=== PATIENT | female | born 1970 | race African-American/Black ===

== ENCOUNTER 2016-10-04 11:22 | Emergency (ER) | payer MEDICAID ==
[~2016-10-04] VITALS: Ht 162.6 cm; Wt 68.0 kg
[~2016-10-04 11:22] MED LIST: CIPRO500 MG PO; CYCLOBENZAPRINE10 MG ORAL; IBUPROFEN600 MG ORAL; MACROBID100 MG ORAL; METROGEL-VAGINA70 G1 VAGIN; NAPROSYN500 M1 ORAL; NAPROXEN375 MG PO; NKM; NORCO 5-325 TA1 EAC1 PO; NORCO 5-325 TA1 EACH ORAL; TYLENOL #21 EA ORAL; TYLENOL325 MG ORAL; VALIUM2 MG PO; VIBRAMYCIN100 MG ORAL; ZOFRAN ODT4 MG ORAL
[2016-10-04 12:04] VITALS: BP 107/54
--- NOTE | 2016-10-04 12:16 | Emergency Room Report ---
History of Present Illness General Chief Complaint: Eye Problems Source: Patient Present Illness HPI 36-year-old female presents emergency department complaining of irritation, erythema, discharge and increased lacrimation from the left thigh progressive over the course of 5 days. Patient reports onset of symptoms was after having eyelashes extensions placed. Patient is unable to remove all of the false eyelashes from the left eye. Patient reports intermittent itching she denies foreign body sensation, denies eye pain or loss of vision. Patient reports that at 10 in severity burning sensation. She denies use of contact lenses. She denies photophobia, visual disturbances or flashing lights. Denies CP, Palpitations, LOC, AMS, dizziness, Changes in Vision, Sensation, paresthesias, or a sudden severe headache. Allergies: Coded Allergies: No Known Allergies (Unverified , 03/24/13) Patient History Past Medical History: see triage record Past Surgical History: none Pertinent Family History: none Last Menstrual Period: last month Now: No Immunizations: UTD Reviewed Nursing Documentation: PMH: Agreed, PSxH: Agreed Nursing Documentation-PMH Past Medical History: No Stated History Review of Systems All Other Systems: negative except mentioned in HPI Physical Exam Vital Signs Date Time Temp Pulse Resp B/P Pulse Ox O2 Delivery O2 Flow Rate FiO2 10/04/16 11:41 98.4 86 18 107/54 99 Room Air Sp02 EP Interpretation: reviewed, normal General Appearance: no apparent distress, alert, GCS 15, non-toxic Head: normocephalic, atraumatic Eyes: left eye lid inflammation - upper lid inflammation, left eye other - erythema, and obvious d/c noted in the left eye, upper lid inflammation, pt. has EOMI without pain., bilateral eye PERRL, bilateral eye normal inspection ENT: hearing grossly normal, normal pharynx, no angioedema, normal voice Neck: full range of motion, supple/symm/no masses Respiratory: lungs clear, normal breath sounds, speaking full sentences Cardiovascular #1: regular rate, rhythm, no edema Musculoskeletal: back normal, gait/station normal, normal range of motion, non- tender Neurologic: alert, oriented x3, responsive, motor strength/tone normal, sensory intact, speech normal Psychiatric: judgement/insight normal, memory normal, mood/affect normal Skin: normal color, no rash, warm/dry, well hydrated Lymphatic: no adenopathy Medical Decision Making PA Attestation Dr. malone is my supervising Physician whom patient management has been discussed with. Diagnostic Impression: Primary Impression: Conjunctivitis Qualified Codes: H10.32 - Unspecified acute conjunctivitis, left eye ER Course 36-year-old female presents emergency department complaining of irritation, erythema, discharge and increased lacrimation from the left thigh progressive over the course of 5 days. Patient reports onset of symptoms was after having eyelashes extensions placed. Patient is unable to remove all of the false eyelashes from the left eye. Patient reports intermittent itching she denies foreign body sensation, denies eye pain or loss of vision. Patient reports that at 10 in severity burning sensation. She denies use of contact lenses. She denies photophobia, visual disturbances or flashing lights. Ddx considered but are not limited to: corneal abrasion, acute glaucoma, globe rupture, FB, Corneal Ulcer, conjunctivitis. Iridis, orbital cellulitis,keratitis , sinusitis Vital signs: are WNL, pt. is afebrile H&PE are most consistent with: bacterial conjunctivitis secondary to false eyelashes ORDERS: none at this time. ED INTERVENTIONS: none at this time. DISCHARGE: At this time pt. is stable for d/c to home. Will provide printed patient care instructions, and any necessary prescriptions. Care plan and follow up instructions have been discussed with the patient prior to discharge. Last Vital Signs Date Time Temp Pulse Resp B/P Pulse Ox O2 Delivery O2 Flow Rate FiO2 10/04/16 12:04 98.4 86 18 107/54 99 Room Air Disposition: HOME, SELF-CARE Condition: Stable Scripts Diclofenac Sodium (DICLOFENAC SODIUM*) 2.5 Ml Drops 1 DROP LEFT EYE QID, #2.5 ML 0 Refills Prov: Melany Torre P.A. 10/04/16 Ofloxacin (OCUFLOX) 5 Ml Drops 3 DROP OP BID, #5 ML Prov: Melany Torre P.A. 10/04/16 [facility]errals: [facility] (PCP) Patient Instructions: Bacterial Conjunctivitis, [id number] Additional Instructions: Take medications as directed. Follow up with PCP in 3-5 days Return sooner to ED if new symptoms occur, or current symptoms become worse. Recommend removal of existing eyelash extensions, and frequent lid washing. - Please note that this Emergency Department Report was dictated using [employer] economics teacher technology software, occasionally this can lead to erroneous entry secondary to interpretation by the dictation equipment. Melany Torre. Oct 04, 2016 12:16
[2016-10-04] MEDS ORDERED: OCUFLOX5 ML OP (12:17)
[2016-10-04] MEDS ORDERED: DICLOFENAC SOD2.5 ML LEFT EYE (12:17)
[2016-10-04 12:36] VITALS: BP 107/54
== END 2016-10-04 12:38 | disposition home or self-care (01) ==
LOC: EMR 12:03
DX: H10.32 Unspecified acute conjunctivitis, left eye (principal)
CPT/HCPCS: 99284

== ENCOUNTER 2016-11-25 13:20 | Emergency (ER) | payer MEDICAID ==
[~2016-11-25] VITALS: Ht 162.6 cm; Wt 68.0 kg
[~2016-11-25 13:20] MED LIST changes: +DICLOFENAC SOD2.5 ML LEFT EYE; +OCUFLOX5 ML OP
[2016-11-25 14:06] VITALS: BP 133/83
[2016-11-25] MEDS ORDERED: Bacitracin Oint UD TOPIC ONE (14:15)
[2016-11-25] MEDS ORDERED: Lidocaine 1% MPF 10mg/ml 5ml INJ ONE (14:15)
[2016-11-25 15:00] VITALS: BP 130/75
[2016-11-25] MEDS ORDERED: BACITRACIN15 GM TOPIC (15:03)
[2016-11-25] MEDS ORDERED: IBUPROFEN600 MG ORAL (15:03)
[2016-11-25 15:09] VITALS: BP 130/75
[2016-11-25] MEDS ORDERED: TYLENOL EXTRA500 MG ORAL (15:15)
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
== END 2016-11-25 15:09 | disposition home or self-care (01) ==
LOC: EMR 13:40
DX: S01.01XA Laceration without foreign body of scalp, initial encounter (principal); Y04.2XXA Assault by strike against or bumped into by another person, initial encounter; Y93.9 Activity, unspecified; Y92.9 Unspecified place or not applicable
CPT/HCPCS: 12001; 99284; Z7502

== ENCOUNTER 2017-01-14 19:20 | Emergency (ER) | payer MEDICAID ==
[~2017-01-14] VITALS: Ht 162.6 cm; Wt 68.0 kg
[~2017-01-14 19:20] MED LIST changes: +BACITRACIN15 GM TOPIC; +TYLENOL EXTRA500 MG ORAL
--- NOTE | 2017-01-14 19:59 | Emergency Room Report ---
History of Present Illness General Chief Complaint: Lower Extremity Injury Source: Patient Present Illness HPI Patient is a 46-year-old female who presents today with complaints of left great toe pain. She states one month ago she was swimming and stubbed her left great toe. She states that within the past few days the pain in left great toe has been worsening and the nail is beginning to lift. She states the pain is currently a 6/10 in severity and hasn't taken medications for it. Denies any numbness, tingling, loss of vision Allergies: Coded Allergies: No Known Allergies (Unverified , 03/24/13) Patient History Now: No Reviewed Nursing Documentation: PMH: Agreed, PSxH: Agreed Nursing Documentation-PMH Past Medical History: No Stated History Review of Systems Musculoskeletal: Reports: other - toe pain All Other Systems: negative except mentioned in HPI Physical Exam Vital Signs Date Time Temp Pulse Resp B/P (MAP) Pulse Ox O2 Delivery O2 Flow Rate FiO2 01/14/17 19:42 97.9 115 20 116/58 97 Room Air Sp02 EP Interpretation: reviewed, normal General Appearance: no apparent distress, alert, GCS 15, non-toxic Head: normocephalic, atraumatic Eyes: bilateral eye normal inspection, bilateral eye PERRL ENT: hearing grossly normal, normal pharynx, no angioedema, normal voice Neck: full range of motion, supple/symm/no masses Respiratory: chest non-tender, lungs clear, normal breath sounds, speaking full sentences Cardiovascular #1: regular rate, rhythm, no edema Cardiovascular #2: 2+ carotid (R), 2+ carotid (L), 2+ radial (R), 2+ radial (L) , 2+ dorsalis pedis (R), 2+ dorsalis pedis (L) Gastrointestinal: normal bowel sounds, non tender, soft, non-distended, no guarding, no rebound Rectal: deferred Genitourinary: normal inspection, no CVA tenderness Musculoskeletal: back normal, gait/station normal, normal range of motion, non- tender, calf tenderness, other - no tenderness to palpation over the left great toe. The nail is lifted off of the nail bed it. There is scant erythema at the cuticle line with a small amount of purulent discharge expressed. Neurologic: alert, oriented x3, responsive, motor strength/tone normal, sensory intact, speech normal Psychiatric: judgement/insight normal, memory normal, mood/affect normal, no suicidal/homicidal ideation Reflexes: 3+ bicep (R), 3+ bicep (L), 3+ tricep (R), 3+ tricep (L), 3+ knee (R) , 3+ knee (L) Skin: normal color, no rash, warm/dry, well hydrated Lymphatic: no adenopathy Procedures Incision and Drainage Incision and Drainage : Consent: Verbal Site: right great toe I & D Procedure: betadine prep Wound Explored: clean Anesthesia: 1% Lidocaine Splint Applied?: No Sling Applied?: No Patient Tolerated: Well Complications: None Progress Removed nail on right great toe Medical Decision Making PA Attestation supervising physician is Dr. Mraquez Diagnostic Impression: Primary Impression: Paronychia Additional Impression: Toenail avulsion ER Course Patient presents today with complaints of stubbed her right great toe. Performed a digital block and remove the right great toe. There is scant purulent discharge expressed from the cuticle line. Will prescribe Bactrim and Keflex. Patient is instructed to follow up with PCP for evaluation as needed. Patient understands and is agreeable to plan to Last Vital Signs Date Time Temp Pulse Resp B/P (MAP) Pulse Ox O2 Delivery O2 Flow Rate FiO2 01/14/17 19:42 97.9 115 20 116/58 97 Room Air Status: improved Disposition: HOME, SELF-CARE Condition: Stable Scripts Cephalexin* (KEFLEX*) 500 Mg Capsule 500 MG ORAL EVERY 6 HOURS for 10 Days, #40 CAP Prov: Trish Brown P.A. 01/14/17 Trimethoprim/Sulfamethoxazole 160/800* (BACTRIM DS TABLET*) 1 Each Tablet 1 TAB ORAL DAILY Y for bid for 10 Days, #20 TAB Prov: Trish Brown P.A. 01/14/17 Trish Brown Jan 14, 2017 19:59
[2017-01-14] MEDS ORDERED: Lidocaine 1% Plain 30 ml INJ ONE (20:15)
[2017-01-14] MEDS ORDERED: CEPHALEXIN500 MG ORAL (20:45)
[2017-01-14] MEDS ORDERED: BACTRIM DS TAB1 EAC1 ORAL (20:45)
[2017-01-14 20:50] VITALS: BP 116/58
== END 2017-01-14 21:00 | disposition home or self-care (01) ==
LOC: EMR 20:58
DX: L03.031 Cellulitis of right toe (principal); S91.202A Unspecified open wound of left great toe with damage to nail, initial encounter; W22.8XXA Striking against or struck by other objects, initial encounter; Y92.89 Other specified places as the place of occurrence of the external cause
CPT/HCPCS: 10060; 99284; J2001

== ENCOUNTER 2017-01-30 15:18 | Emergency (ER) | payer MEDICAID ==
[~2017-01-30] VITALS: Ht 162.6 cm; Wt 68.0 kg
[~2017-01-30 15:18] MED LIST changes: +BACTRIM DS TAB1 EAC1 ORAL; +CEPHALEXIN500 MG ORAL
[2017-01-30] MEDS ORDERED: CEPHALEXIN500 MG ORAL (16:10)
[2017-01-30] MEDS ORDERED: KENALOG 0.025%15 GM APPLIC (16:10)
[2017-01-30 16:33] VITALS: BP 127/83
--- NOTE | 2017-01-30 20:12 | Emergency Room Report ---
History of Present Illness General Chief Complaint: Wound Recheck/Suture Removal Source: Patient Present Illness HPI The patient is a 46-year-old female presenting for continued pain and also hand rash. The patient was seen in this emergency department 01/15 for right toe infection. She was placed on Keflex and Bactrim which she states she took. Pain has continued it as a 9/10 dull ache localized to the first toe. Worse with touch. She states that she has been covering it every day with Neosporin and a dressing. She states that she developed a rash on both hands 2 days prior described as very itchy. She admits to history of eczema. She has not tried any medications at for this. She denies any history of allergic reactions to medications. She denies any other symptoms including nausea, vomiting, fever, chills, shortness of breath, chest pain, numbness or tingling Allergies: Coded Allergies: No Known Allergies (Unverified , 03/24/13) Patient History Past Medical History: see triage record Pertinent Family History: none Last Menstrual Period: One week ago Now: No Reviewed Nursing Documentation: PMH: Agreed, PSxH: Agreed Nursing Documentation-PMH Past Medical History: No Stated History Review of Systems All Other Systems: negative except mentioned in HPI Physical Exam Vital Signs Date Time Temp Pulse Resp B/P (MAP) Pulse Ox O2 Delivery O2 Flow Rate FiO2 01/30/17 15:39 98.1 90 16 114/79 100 Room Air Sp02 EP Interpretation: reviewed, normal General Appearance: no apparent distress, alert, GCS 15, non-toxic Head: normocephalic, atraumatic Eyes: bilateral eye normal inspection, bilateral eye PERRL ENT: hearing grossly normal, normal pharynx, no angioedema, normal voice Neck: full range of motion, supple/symm/no masses Respiratory: chest non-tender, lungs clear, normal breath sounds, speaking full sentences Cardiovascular #1: regular rate, rhythm, no edema Musculoskeletal: back normal, gait/station normal, normal range of motion, non- tender Neurologic: alert, oriented x3, responsive, motor strength/tone normal, sensory intact, speech normal Psychiatric: judgement/insight normal, memory normal, mood/affect normal, no suicidal/homicidal ideation Skin: rash - many papules on both boths on palmar surfaces and within web spaces, other - R 1st toe: erythema to dorsal surface. SILT. Full AROM. TTP Lymphatic: no adenopathy Procedures Splinting Splinting : Consent: Verbal Location: R foot Pre-Made Type: velcro Splint: cast shoe Pre-Proc Neuro Vasc Exam: normal Post-Proc Neuro Vasc Exam: normal Patient Tolerated: Well Complications: None Medical Decision Making PA Attestation Dr. Prado is my supervising physician. Patient management was discussed with my supervising physician Diagnostic Impression: Primary Impression: Dyshydrosis Additional Impression: Cellulitis Qualified Codes: L03.90 - Cellulitis, unspecified ER Course The patient is a 46-year-old female presenting for continued toe infection and hand rash Ddx considered include but not limited to insect bite, contact dermatitis, eczema, cellulitis, allergic reaction, among others Physical exam: Afebrile. No apparent distress. Bilateral hands have any papules primarily on the palmar surfaces in between digits. Does not extend beyond hands. No erythema Right first toe: Skin appears macerated. There is erythema and tenderness to palpation over the dorsal surface. No discharge. The patient be discharged home with prescription for Keflex and steroid cream for hands. She will wear open toe shoes and allow the area to dry. She states she has an appointment to see her primary doctor tomorrow. ER precautions are given Last Vital Signs Date Time Temp Pulse Resp B/P (MAP) Pulse Ox O2 Delivery O2 Flow Rate FiO2 01/30/17 16:33 89 17 127/83 99 Room Air 01/30/17 16:33 97.6 Status: improved Disposition: HOME, SELF-CARE Condition: Improved Scripts Triamcinolone Acet (Triamcinolone Acetonide) 15 Gm Cream..g. 15 GM APPLIC TID, #15 GM Prov: TERZIAN,MANUEL P.A. 01/30/17 Cephalexin* (KEFLEX*) 500 Mg Capsule 500 MG ORAL Q6HR, #28 CAP 0 Refills Prov: TERZIAN,MANUEL P.A. 01/30/17 Referrals: [facility] (PCP) Patient Instructions: Cellulitis, Hand Dermatitis Additional Instructions: I discussed my findings with the patient. All questions and concerns have been answered. Treatment and medication compliance have been addressed. I advised the patient that they need to follow up with PMD in 3-5 days. Return to ED if symptoms worsen, new symptoms arise, or if needed for any reason. Patient verbalized understanding of discharge instructions. MANUEL PEREA Jan 30, 2017 20:12
== END 2017-01-30 16:55 | disposition home or self-care (01) ==
LOC: EMR 16:08
DX: L30.1 Dyshidrosis [pompholyx] (principal); L03.90 Cellulitis, unspecified
CPT/HCPCS: 99283

== ENCOUNTER 2017-05-06 07:59 | Emergency (ER) | payer MEDICAID ==
[~2017-05-06] VITALS: Ht 162.6 cm; Wt 68.0 kg
[~2017-05-06 07:59] MED LIST changes: +KENALOG 0.025%15 GM APPLIC
[2017-05-06 08:10] VITALS: BP 115/80
[2017-05-06 08:35] LABS: APPEARANCE,URINE SLIGHTLY CLOUDY; BILIRUBIN, URINE NEGATIVE (NEGATIVE); GLUCOSE, URINE (UA) NEGATIVE (NEGATIVE); KETONES,URINE 1+ (NEGATIVE); LEUKOCYTE ESTERASE ,URINE 1+ (NEGATIVE); NITRITE,URINE NEGATIVE (NEGATIVE); PH,URINE 6 (4.5-8.0); PROTEIN,URINE 1+ (NEGATIVE); UROBILINOGEN,URINE 1 MG/DL (0.0-1.0)
[2017-05-06 08:38] LABS: COLOR,URINE YELLOW
[2017-05-06] MEDS ORDERED: Azithromycin 250mg tab ORAL ONE (09:00)
[2017-05-06] MEDS ORDERED: ADULT TUSS100 MG/5 M ORAL (09:02)
[2017-05-06] MEDS ORDERED: Lidocaine 1% MPF 10mg/ml 5ml INJ ONE (09:15)
[2017-05-06 09:30] VITALS: BP 115/80
--- NOTE | 2017-05-06 09:36 | Emergency Room Report ---
History of Present Illness General Chief Complaint: General Complaint Source: Patient Present Illness HPI Patient is a 46-year-old female who presented after increased vaginal discharge. Patient stated that she had recently been exposed to possible STD. She denies any fever. Having a recent cough for the past 2 days. She denies any vomiting. Patient gradual onset of symptoms. She denies any black or bloody stools. Allergies: Coded Allergies: No Known Allergies (Unverified , 03/24/13) Patient History Last Menstrual Period: 04/28/17 Reviewed Nursing Documentation: PMH: Agreed, PSxH: Agreed Nursing Documentation-PMH Past Medical History: No Stated History Review of Systems All Other Systems: negative except mentioned in HPI Physical Exam Vital Signs Date Time Temp Pulse Resp B/P (MAP) Pulse Ox O2 Delivery O2 Flow Rate FiO2 05/06/17 08:02 98.2 112 18 134/78 98 Room Air General Appearance: well appearing, no apparent distress, alert, GCS 15 Head: normocephalic, atraumatic ENT: hearing grossly normal, normal voice Neck: full range of motion, supple Respiratory: no respiratory distress, speaking full sentences Cardiovascular #1: normal inspection, normal peripheral pulses, regular rate, rhythm Gastrointestinal: normal inspection, normal bowel sounds, non tender, soft Musculoskeletal: normal inspection, no calf tenderness Neurologic: normal inspection, alert, oriented x3, responsive, prison officer III-XII nml as tested, normal gait Psychiatric: mood/affect normal Skin: no rash Medical Decision Making Diagnostic Impression: Primary Impression: Vaginal discharge Additional Impression: Upper respiratory infection ER Course Patient presented for abdominal pain and vaginal discharge. . Differential diagnoses included ischemic bowel, appendicitis, perforated viscus, abdominal aortic aneurysm, inferior myocardial infarction, viral gastroenteritis. Patient has a benign exam and does not appear to require any further imaging or laboratory testing at this time. A urinalysis with evidence of slight UTI. The patient's symptoms patient will be treated empirically for STI. Patient given a prescription for cough medication.The patient is advised to follow up with primary care doctor in 1-2 days for STI testing. Patient is advised to return if any worsening condition or if any changes in status that are concerning. This report is dictated with [employer] foam gun operator software which may occasionally lead to discrepancies related to use of this software. Last Vital Signs Date Time Temp Pulse Resp B/P (MAP) Pulse Ox O2 Delivery O2 Flow Rate FiO2 05/06/17 09:30 98.3 121 16 115/80 99 Room Air Status: improved Disposition: HOME, SELF-CARE Condition: Stable Scripts Guaifenesin (Adult Tussin Chest Congestion) 100 Mg/5 Ml Liquid 10 ML ORAL Q4H for For Cough, #120 ML Prov: Scott Hightower 05/06/17 Patient Instructions: Upper Respiratory Infection, Adult, [id number], Vaginitis Scott Hightower May 06, 2017 09:36
== END 2017-05-06 09:33 | disposition home or self-care (01) ==
LOC: EMR 08:15
DX: N89.8 Other specified noninflammatory disorders of vagina (principal); J06.9 Acute upper respiratory infection, unspecified
CPT/HCPCS: 81003; 81025; 96372; 99284; J0696

== ENCOUNTER 2018-01-20 07:48 | Emergency (ER) | payer MEDICAID ==
[~2018-01-20] VITALS: Ht 162.6 cm; Wt 65.8 kg
[~2018-01-20 07:48] MED LIST changes: +ADULT TUSS100 MG/5 M ORAL
[2018-01-20 08:18] VITALS: BP 132/83
[2018-01-20] MEDS ORDERED: Azithromycin 250mg tab ORAL ONE (08:30)
[2018-01-20] MEDS ORDERED: Lidocaine 1% MPF 10mg/ml 5ml INJ ONE (08:30)
[2018-01-20 08:46] LABS: APPEARANCE,URINE CLEAR; BILIRUBIN, URINE NEGATIVE (NEGATIVE); GLUCOSE, URINE (UA) NEGATIVE (NEGATIVE); KETONES,URINE NEGATIVE (NEGATIVE); LEUKOCYTE ESTERASE ,URINE 2+ (NEGATIVE); NITRITE,URINE NEGATIVE (NEGATIVE); PH,URINE 5 (4.5-8.0); PROTEIN,URINE 2+ (NEGATIVE); UROBILINOGEN,URINE NORMAL MG/DL (0.0-1.0)
[2018-01-20 08:53] LABS: COLOR,URINE YELLOW
--- NOTE | 2018-01-20 08:59 | Emergency Room Report ---
History of Present Illness General Chief Complaint: Vaginal Source: Patient Present Illness HPI 47-year-old female presents ED complaining of vaginal discharge times one week. States that she had a recent unprotected sex. Notes burning sensation. States there is some dysuria. Denies any bleeding. Denies any fevers or chills. Denies any flank pain. Denies abdominal pain. No other aggravating relieving factors. Denies any other associated symptoms Allergies: Coded Allergies: No Known Allergies (Unverified , 03/24/13) Patient History Past Medical History: none Past Surgical History: none Pertinent Family History: none Social History: Denies: smoking, alcohol use, drug use Now: No Immunizations: UTD Reviewed Nursing Documentation: PMH: Agreed; PSxH: Agreed Nursing Documentation-PMH Past Medical History: No Stated History Review of Systems All Other Systems: negative except mentioned in HPI Physical Exam Vital Signs Date Time Temp Pulse Resp B/P (MAP) Pulse Ox O2 Delivery O2 Flow Rate FiO2 01/20/18 07:55 98.1 84 18 132/83 96 Room Air 98.1 Sp02 EP Interpretation: reviewed, normal General Appearance: no apparent distress, alert, GCS 15, non-toxic Head: normocephalic, atraumatic Eyes: bilateral eye normal inspection, bilateral eye PERRL ENT: hearing grossly normal, normal pharynx, no angioedema, normal voice Neck: full range of motion, supple/symm/no masses Respiratory: chest non-tender, lungs clear, normal breath sounds, speaking full sentences Cardiovascular #1: regular rate, rhythm, no edema Cardiovascular #2: 2+ carotid (R), 2+ carotid (L), 2+ radial (R), 2+ radial (L) , 2+ dorsalis pedis (R), 2+ dorsalis pedis (L) Gastrointestinal: normal bowel sounds, non tender, soft, non-distended, no guarding, no rebound Rectal: deferred Genitourinary: normal inspection, no CVA tenderness Musculoskeletal: back normal, gait/station normal, normal range of motion, non- tender Neurologic: alert, oriented x3, responsive, motor strength/tone normal, sensory intact, speech normal Psychiatric: judgement/insight normal, memory normal, mood/affect normal, no suicidal/homicidal ideation Reflexes: 3+ bicep (R), 3+ bicep (L), 3+ tricep (R), 3+ tricep (L), 3+ knee (R) , 3+ knee (L) Skin: normal color, no rash, warm/dry, well hydrated Lymphatic: no adenopathy Medical Decision Making Diagnostic Impression: Primary Impression: Cervicitis ER Course Hospital Course 47-year-old female presents ED with discharge. dysuria. h/o unprotected sex Differential diagnoses include: trichimonas, gonorrhea, chlamydia Clinical course Patient placed on stretcher. After initial history physical exam reveals a female in no acute distress. Physical exam unremarkable. I ordered UA UA shows some bacteria, no signs of UTI. Discussed findings with patient. We will treat clinically for gonorrhea/Chlamydia Given azithromycin/Rocephin in ED Diagnosis - cervicitis Stable and discharged home with prescriptions for Rx diflucan. Instructed to followup with PMD. Return to ED if symptoms recur or worsen Labs Test 01/20/18 08:10 Urine Color Yellow Urine Appearance Clear Urine pH 5 (4.5-8.0) Urine Specific [place] 1.025 (1.005-1.035) Urine Protein 2+ (NEGATIVE) Urine Glucose (UA) Negative (NEGATIVE) Urine Ketones Negative (NEGATIVE) Urine Blood 5+ (NEGATIVE) Urine Nitrite Negative (NEGATIVE) Urine Bilirubin Negative (NEGATIVE) Urine Urobilinogen Normal MG/DL (0.0-1.0) Urine Leukocyte Esterase 2+ (NEGATIVE) Urine RBC 30-40 /HPF (0 - 2) Urine WBC 5-10 /HPF (0 - 2) Urine Squamous Epithelial Cells Moderate /LPF (NONE/OCC) Urine Bacteria Few /HPF (NONE) Urine Mucus Few /LPF (NONE/OCC) Urine HCG, Qualitative Negative (NEGATIVE) Last Vital Signs Date Time Temp Pulse Resp B/P (MAP) Pulse Ox O2 Delivery O2 Flow Rate FiO2 01/20/18 08:18 98.1 84 18 132/83 96 Room Air 98.1 Status: improved Disposition: HOME, SELF-CARE Condition: Stable Scripts Fluconazole* (DIFLUCAN*) 100 Mg Tablet 100 MG ORAL DAILY for 3 Days, TAB Prov: Carlos Dalal MD 01/20/18 Referrals: [facility] (PCP) Carlos Dalal MD Jan 20, 2018 08:58
[2018-01-20] MEDS ORDERED: DIFLUCAN100 MG ORAL (09:16)
[2018-01-20 09:31] VITALS: BP 132/83
== END 2018-01-20 09:32 | disposition home or self-care (01) ==
LOC: EMR 08:10
DX: N72 Inflammatory disease of cervix uteri (principal); N89.8 Other specified noninflammatory disorders of vagina
CPT/HCPCS: 81003; 81025; 96372; 99283; J0696; Q0144

== ENCOUNTER 2018-08-31 14:49 | Emergency (ER) | payer MEDICAID ==
[~2018-08-31] VITALS: Ht 162.6 cm; Wt 63.5 kg
[~2018-08-31 14:49] MED LIST changes: +DIFLUCAN100 MG ORAL
--- NOTE | 2018-08-31 15:04 | NUR ---
ED Nurse Note: Pt injured her L big toe 3 weeks ago, fell on ground level and hit her nail. Pt stated feeling tenderness and discharge. Pain 7/10 hetal. AOx4, VSS. Will cont to monitor.
--- NOTE | 2018-08-31 15:10 | Emergency Room Report ---
History of Present Illness General Chief Complaint: Pain Source: Patient Present Illness HPI 48-year-old female with no significant past medical history here complaining of pain in the right big toe x2 weeks. Patient reports that something fell in her big toe 2 weeks ago and has been painful and now losing. Nails done recently at the nail salon. Pain 5 out of 10 upon palpation, without radiating pain, denying tingling and numbness. Ibuprofen for pain and has been elevating her leg. She reports that she has an appointment with her primary care provider on Sunday. We will start part of her nail is falling out Allergies: Coded Allergies: No Known Allergies (Unverified , 03/24/13) Patient History Past Medical History: see triage record Past Surgical History: unable to obtain Pertinent Family History: none Last Menstrual Period: 08/2018 Now: No : 0 Para: 0 Immunizations: UTD Reviewed Nursing Documentation: PMH: Agreed; PSxH: Agreed Nursing Documentation-PMH Hx Diabetes: No - pre-diabetes Review of Systems All Other Systems: negative except mentioned in HPI Physical Exam Vital Signs Date Time Temp Pulse Resp B/P (MAP) Pulse Ox O2 Delivery O2 Flow Rate FiO2 08/31/18 14:55 97.5 98 18 99 Room Air Sp02 EP Interpretation: reviewed, normal General Appearance: normal inspection, well appearing, no apparent distress, GCS 15 Eyes: bilateral eye normal inspection, bilateral eye PERRL ENT: normal ENT inspection, hearing grossly normal Neck: normal inspection, full range of motion Respiratory: normal inspection, chest non-tender, lungs clear, no wheezing Cardiovascular #1: normal inspection, no gallop, no murmur Cardiovascular #2: 2+ dorsalis pedis (R), 2+ dorsalis pedis (L) Gastrointestinal: normal inspection, non tender, soft Musculoskeletal: back normal, normal range of motion, other - paronychia right big toe, and tinea ungunum, loose medial edge of nail bed Neurologic: normal inspection, alert, oriented x3 Psychiatric: normal inspection, judgement/insight normal Skin: other - paronychia right big toe, and tinea ungunum, loose medial edge of nail bed Lymphatic: normal inspection, no adenopathy Procedures Incision and Drainage Incision and Drainage : Consent: Verbal Site: right big toe Blade Size: 11 I & D Procedure: betadine prep Wound Location: lower extremity Wound's Depth, Shape: superficial Wound Length (cm): 0 Wound Explored: clean Anesthesia: 1% Lidocaine Volume Anesthetic (ccs): 3 Splint Applied?: No Sling Applied?: No Patient Tolerated: Well Complications: None Progress small amount of clear fluid was drained from the nailbed Medical Decision Making PA Attestation All my diagnosis and treatment plans were reviewed ad discussed with my supervising physician Dr. Hightower Diagnostic Impression: Primary Impression: Paronychia of great toe, right Additional Impression: Tinea unguium ER Course 48-year-old female with no significant past medical history here complaining of pain in the right big toe x2 weeks. Patient reports that something fell in her big toe 2 weeks ago and has been painful and now losing. Nails done recently at the nail salon. Pain 5 out of 10 upon palpation, without radiating pain, denying tingling and numbness. Ibuprofen for pain and has been elevating her leg. She reports that she has an appointment with her primary care provider on Sunday. We will start part of her nail is falling out Incision and drainage of abscess was done without complications, lidocaine was applied for numbing, patient was put on antibiotics upon discharge and nonadhesive dressing was applied, pt advised to follow up with pcp or go to urgent care for wound check in 2-4days. if fever, chills, severe pain at site of I and D, return to the ER Ddx considered but are not limited to:paronychia, tinea unguinum, gout, deep abscess Vital signs: are WNL, pt. is afebrile H&PE are most consistent with: paronychia, tinea unguinum ORDERS: keflex, naproxen, lotrisione, I and D ED INTERVENTIONS: I and D, wound clean and dress DISCHARGE: At this time pt. is stable for d/c to home. Will provide printed patient care instructions, and any necessary prescriptions. Care plan and follow up instructions have been discussed with the patient prior to discharge. Follow-up with your primary care provider for referral to photograph developer, the medial edge of nailbed is loose but to be discussed and evaluated with podatrist due to tinea unguinim, possible oral terbanaftine tx after LFT clearance by pcp or nail removal by photograph developer as the entire nail is intact except for medial corner. pt agrees with this tx Last Vital Signs Date Time Temp Pulse Resp B/P (MAP) Pulse Ox O2 Delivery O2 Flow Rate FiO2 08/31/18 14:55 97.5 98 18 99 Room Air Disposition: HOME, SELF-CARE Condition: Stable Scripts Clotrimazole/Betamethasone Dip* (LOTRISONE CREAM*) 15 Gm Cream..g. 2 GM TP TWICE A DAY, #15 GM 0 Refills Prov: Rowan Ambrocio 08/31/18 Naproxen* (NAPROXEN*) 500 Mg Tablet 500 MG ORAL TWICE A DAY, #20 TAB Prov: Rowan Ambrocio 08/31/18 Cephalexin* (KEFLEX*) 500 Mg Capsule 500 MG ORAL EVERY 6 HOURS for 7 Days, #28 CAP Prov: Rowan Ambrocio 08/31/18 Patient Instructions: Athlete's Foot, [id number], Paronychia, [id number] Additional Instructions: follow up Primary care provider for referral to photograph developer, avoid exposure to moist areas, wear sandals or open toe shoes Rowan Ambrocio August 31, 2018 15:10
[2018-08-31] MEDS ORDERED: Nail Polish Remover TOPIC ONE (15:15)
[2018-08-31] MEDS ORDERED: Lidocaine 1% Plain 30 ml INJ ONE (15:15)
[2018-08-31 15:32] VITALS: BP 148/79
[2018-08-31] MEDS ORDERED: Naproxen 500mg tab ORAL ONE (16:00)
--- NOTE | 2018-08-31 16:05 | NUR ---
ED Nurse Note: HAYLEE Donahue in room proceeding I & D procedure.
[2018-08-31] MEDS ORDERED: NAPROXEN500 M2 ORAL (16:08)
[2018-08-31] MEDS ORDERED: LOTRISONE CREAM15 GM TP (16:08)
[2018-08-31] MEDS ORDERED: CEPHALEXIN500 MG ORAL (16:08)
[2018-08-31 16:15] VITALS: BP 148/79
--- NOTE | 2018-08-31 16:15 | NUR ---
ER DISCHARGE NOTE: Patient is cleared to be discharged per ERMD, pt is aox4, on room air, with stable vital signs. pt was given dc and prescription instructions, pt was able to verbalize understanding, pt id band removed. pt is able to ambulate with steady gait. pt took all belongings.
== END 2018-08-31 16:15 | disposition home or self-care (01) ==
LOC: EMR 15:10
DX: L03.031 Cellulitis of right toe (principal); B35.1 Tinea unguium; R73.03 Prediabetes
CPT/HCPCS: 10060; 99282; J2001

== ENCOUNTER 2019-06-19 14:51 | Emergency (ER) | payer MEDICAID ==
[~2019-06-19] VITALS: Ht 162.6 cm; Wt 59.0 kg
[~2019-06-19 14:51] MED LIST changes: +LOTRISONE CREAM15 GM TP; +NAPROXEN500 M2 ORAL
[2019-06-19] MEDS ORDERED: METFORMIN HCL500 M1 ORAL (15:02)
[2019-06-19 15:05] VITALS: BP 124/72
--- NOTE | 2019-06-19 15:11 | Emergency Room Report ---
History of Present Illness General Chief Complaint: Skin Rash/Abscess Source: Patient Present Illness HPI 48-year-old female with no known significant past medical history here complaining of generalized pruritus and rash all over her body. Patient reports that she is being bit by something. Start getting naked in front of everyone. Reports that she cannot stand the itchiness. No rashes noted. Patient is under the influence of methamphetamine. No apparent distress. Allergies: Coded Allergies: No Known Allergies (Unverified , 03/24/13) Patient History Past Medical History: see triage record Past Surgical History: none Pertinent Family History: none Now: No Immunizations: UTD Reviewed Nursing Documentation: PMH: Agreed; PSxH: Agreed Nursing Documentation-PMH Past Medical History: No History, Except For Hx Diabetes: No - pre-diabetes Review of Systems All Other Systems: negative except mentioned in HPI Physical Exam Vital Signs Date Time Temp Pulse Resp B/P (MAP) Pulse Ox O2 Delivery O2 Flow Rate FiO2 06/19/19 14:59 98.4 107 19 127/79 (95) 98 Room Air Sp02 EP Interpretation: reviewed, normal General Appearance: well appearing, no apparent distress Head: normocephalic, atraumatic ENT: hearing grossly normal, normal voice Neck: full range of motion, supple Respiratory: no rhonchi, no respiratory distress, no wheezing, speaking full sentences Cardiovascular #1: no murmur Gastrointestinal: non tender, soft Rectal: deferred Genitourinary: no CVA tenderness Musculoskeletal: gait/station normal Neurologic: alert, normal gait Psychiatric: mood/affect normal Skin: no rash, palpation normal Lymphatic: no adenopathy Medical Decision Making PA Attestation All my diagnosis and treatment plans were reviewed ad discussed with my supervising physician Dr. Tian Diagnostic Impression: Primary Impression: Drug-induced pruritus ER Course 48-year-old female with no known significant past medical history here complaining of generalized pruritus and rash all over her body. Patient reports that she is being bit by something. Start getting naked in front of everyone. Reports that she cannot stand the itchiness. No rashes noted. Patient is under the influence of methamphetamine. No apparent distress. Ddx considered but are not limited to: Eczema, scabies, lice, Vital signs: are WNL, pt. is afebrile H&PE are most consistent with: Drug-induced pruritus ORDERS: Hydrocortisone cream, Benadryl ED INTERVENTIONS: None required at this time. DISCHARGE: At this time pt. is stable for d/c to home. Will provide printed patient care instructions, and any necessary prescriptions. Care plan and follow up instructions have been discussed with the patient prior to discharge. Relief, patient to stop using methamphetamine, take medication as directed, if worsening symptoms return to the emergency room Last Vital Signs Date Time Temp Pulse Resp B/P (MAP) Pulse Ox O2 Delivery O2 Flow Rate FiO2 06/19/19 14:59 98.4 107 19 127/79 (95) 98 Room Air Disposition: HOME, SELF-CARE Condition: Stable Scripts Diphenhydramine HCl (Benadryl) 25 Mg Capsule 25 MG PO BID, #15 CAP Prov: Rowan Ambrocio 06/19/19 Hydrocortisone/Aloe (Hydrocortisone/Aloe 1% Cream*) Y Cr 1 APPLIC TOPIC Q6H PRN for Itching, #30 GM Prov: Rowan Ambrocio 06/19/19 Patient Instructions: Rash Rowan Ambrocio Jun 19, 2019 15:11
[2019-06-19] MEDS ORDERED: HYDROCORTISONE-30 GM TOPIC (15:12)
[2019-06-19] MEDS ORDERED: BENADRYL25 M3 PO (15:12)
--- NOTE | 2019-06-19 15:13 | NUR ---
ED Nurse Note: Pt walked into ED w/ c/o itchiness over whole body, felt "as if bugs moving inside her." Pt skin has no vesicles or nodules. Pt denies any drugs. Pt took off clothes in waiting room and was pouring water over herself. Pt informed she needs to have a gown on. Pt is alert and orientedx4, anxious. Pt is ambulatory.
--- NOTE | 2019-06-19 15:26 | NUR ---
ED Nurse Note: Pt DC's and walked outrefusing to let RN remove wristband.
--- NOTE | 2019-06-19 15:27 | NUR ---
ER DISCHARGE NOTE: Patient is cleared to be discharged per ERMD, pt is aox4, on room air, with stable vital signs. pt was given dc and prescription instructions, pt was able to verbalize understanding, pt id band and removed. pt is able to ambulate with steady gait. pt took all belongings. Pt given new clothes bc she thought old clothes were dirty. Pt keep demanding new clothes, although gievn new clothes. Pt finally walks out [id number] and agrees to be discharged.
[2019-06-19 15:28] VITALS: BP 121/79
== END 2019-06-19 15:28 | disposition home or self-care (01) ==
LOC: EMR 15:20
DX: L29.8 Other pruritus (principal); F15.90 Other stimulant use, unspecified, uncomplicated; R73.03 Prediabetes
CPT/HCPCS: 99282

== ENCOUNTER 2019-09-29 12:53 | Emergency (ER) | payer MEDICAID ==
[~2019-09-29] VITALS: Ht 162.6 cm; Wt 54.4 kg
[~2019-09-29 12:53] MED LIST changes: +BENADRYL25 M3 PO; +HYDROCORTISONE-30 GM TOPIC; +METFORMIN HCL500 M1 ORAL
[2019-09-29] MEDS ORDERED: Azithromycin 250mg tab ORAL ONE (13:15)
[2019-09-29] MEDS ORDERED: Ketorolac 30mg Inj IV ONE (13:15)
[2019-09-29 13:30] VITALS: BP 122/74
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
[2019-09-29 13:56] LABS: EOSINOPHILS % (AUTO) 0.2 % (0.0-3.0); HEMATOCRIT 40.1 % (37.0-47.0); HEMOGLOBIN 13.2 G/DL (12.0-16.0); LYMPHOCYTES % (AUTO) 18.3 % (20.0-45.0); MEAN CORPUSCULAR VOLUME 80 FL (80-99); MONOCYTES % (AUTO) 8.9 % (1.0-10.0); NEUTROPHILS % (AUTO) 71.6 % (45.0-75.0); PLATELET COUNT 282 K/UL (150-450); RED BLOOD COUNT 4.99 M/UL (4.20-5.40); RED CELL DISTRIBUTION WIDTH 14.2 % (11.6-14.8); WHITE BLOOD COUNT 5.1 K/UL (4.8-10.8)
[2019-09-29 13:59] LABS: APPEARANCE,URINE CLEAR; BILIRUBIN, URINE NEGATIVE (NEGATIVE); COLOR,URINE PALE YELLOW; GLUCOSE, URINE (UA) NEGATIVE (NEGATIVE); KETONES,URINE NEGATIVE (NEGATIVE); LEUKOCYTE ESTERASE ,URINE NEGATIVE (NEGATIVE); NITRITE,URINE NEGATIVE (NEGATIVE); PH,URINE 7 (4.5-8.0); PROTEIN,URINE 1+ (NEGATIVE); UROBILINOGEN,URINE NORMAL MG/DL (0.0-1.0)
[2019-09-29 14:04] LABS: ANION GAP 12 mmol/L (5-15); BLOOD UREA NITROGEN 5 mg/dL (7-18); CALCIUM 9.1 MG/DL (8.5-10.1); CARBON DIOXIDE 25 MMOL/L (21-32); CHLORIDE 101 MMOL/L (98-107); POTASSIUM 3.6 MMOL/L (3.5-5.1); SODIUM 138 MMOL/L (136-145)
[2019-09-29 14:09] LABS: ALANINE AMINOTRANSFERASE 22 U/L (12-78); ALBUMIN 3.8 G/DL (3.4-5.0); ALKALINE PHOSPHATASE 65 U/L (46-116); ASPARTATE AMINO TRANSFERASE 19 U/L (15-37); BILIRUBIN,TOTAL 0.2 MG/DL (0.2-1.0)
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
[2019-09-29] MEDS ORDERED: OMEPRAZOLE20 M3 ORAL (14:59)
[2019-09-29] MEDS ORDERED: TYLENOL325 MG ORAL (14:59)
[2019-09-29] MEDS ORDERED: ZOFRAN4 M1 ORAL (14:59)
[2019-09-29 15:11] VITALS: BP 121/72
--- NOTE | 2019-09-29 15:11 | NUR ---
ER DISCHARGE NOTE: Patient is cleared to be discharged per ERMD, pt is aox4, on room air, with stable vital signs. pt was given dc and prescription instructions, pt was able to verbalize understanding, pt id band and iv site removed without complications. pt is able to ambulate with steady gait. pt took all belongings. Pt educated on f/u with doctor.
--- NOTE | 2019-09-29 19:17 | Diagnostic Imaging Report ---
Indication: Abdominal pain Technique: Monroy-scale and duplex images of the upper abdomen were obtained Comparison: none Findings: Gallbladder is unremarkable, without stones, wall thickening, nor pericholecystic fluid. Sonographic Mccray's sign is negative. Common bile duct measures 3 mm in diameter. No intrahepatic biliary ductal dilatation. Liver demonstrates normal echogenicity, no focal abnormality. Portal vein and hepatic veins are patent. Pancreas is unremarkable. Spleen is unremarkable. Left kidney measures 10 cm in length. Right kidney measures 9.3 cm length. Both kidneys demonstrate normal echogenicity. There is no hydronephrosis. No focal abnormality . Abdominal aorta is partially obscured by bowel gas, visualized portions are non-aneurysmal . Impression: Essentially unremarkable exam. Note inability to visualize portions of the abdominal aorta
== END 2019-09-29 15:11 | disposition home or self-care (01) ==
LOC: EMR 13:23
DX: T76.21XA Adult sexual abuse, suspected, initial encounter (principal); Z20.2 Contact with and (suspected) exposure to infections with a predominantly sexual mode of transmission; R10.9 Unspecified abdominal pain; R11.2 Nausea with vomiting, unspecified; R73.03 Prediabetes
CPT/HCPCS: 36415; 76700; 80053; 81003; 81025; 85025; 86703; 86706; 96361; 96374; 96375; J0696; J1885; J2405; J7030; Q0144; Z7502; 99284